=== PATIENT | male | born 1975 | race Caucasian/White ===

== ENCOUNTER 2017-01-04 22:30 | Emergency (ER) | payer OTHER ==
[~2017-01-04] VITALS: Ht 185.4 cm; Wt 114.7 kg
[~2017-01-04 22:30] MED LIST: IBUP-232 PO; WELLTAB39 PO
[2017-01-04 22:56] VITALS: BP 151/88; PULSE 80; RESP 18; TEMP 97.9
[2017-01-04] MEDS ORDERED: SODIUM CHLORIDE 0.9% FLUSH 10 ML FLUSH IVF PRN (23:45)
[2017-01-04] MEDS ORDERED: ONDANSETRON HCL 4 MG/2 ML VIAL IVP ONE (23:45)
[2017-01-04] MEDS ORDERED: SODIUM CHLOR 0.9% 1000 ML INJ 1,000 ML IV ONE (23:45)
[2017-01-04] MEDS ORDERED: HYDROmorphone HCL PF 1 MG/ML VIAL IVS ONE (23:45)
--- NOTE | 2017-01-04 23:55 | PD ---
HPI Chief Complaint: Flank/Kidney Pain Time Seen by Provider: 23:39 Travel History International Travel<30 days: No Contact w/Intl Traveler<30days: No Traveled to known affect area: No History of Present Illness HPI The patient is a 41-year-old male that complains of left flank pain since 3:30 PM today. The pain is sudden onset and radiates to the groin. He has never had a urinary stone before. The pain is in the left flank and radiates all the way to the left groin. There is never any right sided pain. He denies any dysuria, frequency or urgency. He has been nauseated and vomited twice today. The patient states he is on a ketones diarrhea where he eats fats, low carbohydrates and the goal is to have ketones in the urine. PFSH Past Medical History Asthma: Yes Depression: Yes Cancer: No Cardiovascular Problems: No High Cholesterol: Yes Diminished Hearing: No Endocrine: No GERD: Yes (HEARTBURN OCCASIONALLY) Genitourinary: No Hiatal Hernia: No Immune Disorder: No Medical other: Yes (Gout) Musculoskeletal: Yes (LEFT HIP, PAIN AND TIGHTNESS) Neurologic: No Psychiatric: Yes Reproductive: No Respiratory: Yes (ASTHMA) Immunizations Current: Yes Sleep Apnea: Yes Ulcer: No Tetanus Vaccination: < 5 Years Influenza Vaccination: No Past Surgical History Abdominal Surgery: Yes (HERNIA REPAIR AT ) Cardiac Surgery: No Ear Surgery: No Endocrine Surgery: No Eye Surgery: No Genitourinary Surgery: No Gynecologic Surgery: No Oral Surgery: No Thoracic Surgery: No Tonsillectomy: Yes Other Surgery: Yes Social History Alcohol Use: Yes (Rarely) Tobacco Use: No Substance Use: No Allergies-Medications (Allergen,Severity, Reaction): Coded Allergies: No Known Allergies (Unverified , 01/04/17) Reported Meds & Prescriptions Reported Meds & Active Scripts Active Reported Wellbutrin Xl 24 HR (Bupropion HCl) 300 Mg Tab 300 Mg PO DAILY Review of Systems Except as stated in HPI: all other systems reviewed are Neg Physical Exam Narrative GENERAL: The patient is alert, oriented 3 in moderate to severe distress with areas left flank pain. His vital signs show blood pressure 151/88 but are otherwise normal. SKIN: Focused skin assessment warm/dry. HEAD: Atraumatic. Normocephalic. EYES: Pupils equal and round. No scleral icterus. No injection or drainage. ENT: No nasal bleeding or discharge. Mucous membranes pink and moist. NECK: Trachea midline. No JVD. CARDIOVASCULAR: Regular rate and rhythm. No murmur appreciated. RESPIRATORY: No accessory muscle use. Clear to auscultation. Breath sounds equal bilaterally. GASTROINTESTINAL: Abdomen soft, with tenderness to direct palpation in the left flank and half way between the left flank and left UVJ area, nondistended. Hepatic and splenic margins not palpable. No guarding or rebound is present. MUSCULOSKELETAL: No obvious deformities. No clubbing. No cyanosis. No edema. NEUROLOGICAL: Awake and alert. No obvious cranial nerve deficits. Motor grossly within normal limits. Normal speech. PSYCHIATRIC: Appropriate mood and affect; insight and judgment normal. Data Data Last Documented VS Vital Signs Date Time Temp Pulse Resp B/P (MAP) Pulse Ox O2 Delivery O2 Flow Rate FiO2 01/05/17 01:11 18 01/05/17 00:39 75 134/76 (95) 97 Room Air 01/04/17 22:56 97.9 Orders Orders Complete Blood Count With Diff (01/04/17 23:45) Basic Metabolic Panel (Bmp) (01/04/17 23:45) Urinalysis - C+S If Indicated (01/04/17 23:45) Ct Abd/Pel W/O Iv Contrast (01/04/17 23:45) Ecg Monitoring (01/04/17 23:45) Iv Access Insert/Monitor (01/04/17 23:45) Ondansetron Inj (Zofran Inj) (01/04/17 23:45) Sodium Chloride 0.9% Flush (Ns Flush) (01/04/17 23:45) Sodium Chlor 0.9% 1000 Ml Inj (Ns 1000 M (01/04/17 23:45) Hydromorphone Pf Inj (Dilaudid Pf Inj) (01/04/17 23:45) Ketorolac Inj (Toradol Inj) (01/05/17 00:00) Labs Laboratory Tests Test 01/05/17 00:05 White Blood Count 9.1 TH/MM3 Red Blood Count 4.85 MIL/MM3 Hemoglobin 13.8 GM/DL Hematocrit 41.0 % Mean Corpuscular Volume 84.4 FL Mean Corpuscular Hemoglobin 28.4 PG Mean Corpuscular Hemoglobin Concent 33.6 % Red Cell Distribution Width 12.8 % Platelet Count 279 TH/MM3 Mean Platelet Volume 8.2 FL Neutrophils (%) (Auto) 82.7 % Lymphocytes (%) (Auto) 9.5 % Monocytes (%) (Auto) 5.1 % Eosinophils (%) (Auto) 1.0 % Basophils (%) (Auto) 1.7 % Neutrophils # (Auto) 7.4 TH/MM3 Lymphocytes # (Auto) 0.9 TH/MM3 Monocytes # (Auto) 0.5 TH/MM3 Eosinophils # (Auto) 0.1 TH/MM3 Basophils # (Auto) 0.2 TH/MM3 CBC Comment DIFF FINAL Differential Comment Urine Color YELLOW Urine Turbidity CLEAR Urine pH 5.5 Urine Specific [place] 1.017 Urine Protein NEG mg/dL Urine Glucose (UA) NEG mg/dL Urine Ketones 40 mg/dL Urine Occult Blood LARGE Urine Nitrite NEG Urine Bilirubin NEG Urine Leukocyte Esterase NEG Urine RBC 15-19 /hpf Urine WBC 0-2 /hpf Urine Squamous Epithelial Cells 0-5 /hpf Urine Calcium Oxalate Crystals FEW /hpf Urine Bacteria RARE /hpf Microscopic Urinalysis Comment CULT NOT INDICATED Blood Urea Nitrogen 15 MG/DL Creatinine 1.10 MG/DL Random Glucose 124 MG/DL Calcium Level 8.9 MG/DL Sodium Level 136 MEQ/L Potassium Level 4.2 MEQ/L Chloride Level 103 MEQ/L Carbon Dioxide Level 21.6 MEQ/L Anion Gap 11 MEQ/L Estimat Glomerular Filtration Rate 73 ML/MIN [facility] Medical Decision Making Medical Screen Exam Complete: Yes Emergency Medical Condition: Yes Medical Record Reviewed: Yes Interpretation(s) The patient has a 3 mm stone in the distal left ureter just proximal to the UVJ that is causing mild left hydronephrosis and hydroureter. There is also noted a single nonobstructing stone within each kidney measuring approximately 2 mm. Differential Diagnosis Urinary tract infection, ureteral stone, urethral stricture, abdominal aortic aneurysm-highly unlikely Narrative Course The patient has a left ureteral stone. He will likely pass this without assistance from urology but he should make an appointment with urology in case this stone does not pass. He is given Flomax, Phenergan, Percocet and Motrin prescriptions to help him pass the stone. He should increase his liquid intake. Diagnosis Primary Impression: Left ureteral calculus Additional Instructions: Do not drink alcohol or drive on the Phenergan or Percocet. Take the Flomax every day to open up your urinary passages. The Motrin is also taken regularly , 1 tablet 3 times daily and this is very useful in lowering the amount of pain. Drink plenty of liquids. Oftentimes the reason for formation of stones is that people get dehydrated. Set up an appointment with urologist if the stone does not pass. Med/Other Pt SpecificInfo: Prescription(s) given Scripts Oxycodone-Acetaminophen (Percocet) 5-325 mg Tab 1 TAB PO Q4H Y for PAIN, #28 TAB 0 Refills Prov: Timo Angel MD 01/05/17 Promethazine (Phenergan) 25 Mg Tablet 25 MG PO Q6H Y for NAUSEA OR VOMITING, #30 TAB 0 Refills Prov: Timo Angel MD 01/05/17 Tamsulosin (Flomax) 0.4 Mg Cap 0.4 MG PO HS for Manage Prostate Problems, #30 CAP 0 Refills Prov: Timo Angel MD 01/05/17 Ibuprofen (Ibuprofen) 800 Mg Tab 800 MG PO TID, #44 TAB 0 Refills Prov: Timo Agnel MD 01/05/17 Disposition: 01 DISCHARGE HOME Condition: Stable Timo Angel MD Jan 04, 2017 23:55
[2017-01-05] MEDS ORDERED: KETOROLAC TROMETHAMINE 60 MG/2 ML (IM) VIAL IVP ONE
[2017-01-05 00:22] LABS: AUTOMATED NEUTROPHIL # 7.4 TH/MM3 (1.8-7.7); BASOPHIL # 0.2 TH/MM3 (0-0.2); BASOPHIL % 1.7 % (0.0-2.0); EOSINOPHIL # 0.1 TH/MM3 (0-0.4); LYMPH % 9.5 % (9.0-44.0); LYMPHOCYTE # 0.9 TH/MM3 (1.0-4.8); MEAN CELL VOLUME 84.4 FL (80.0-100.0); MEAN CORPUSCULAR HEMOGLOBIN 28.4 PG (27.0-34.0); MEAN CORPUSCULAR HGB CONC 33.6 % (32.0-36.0); MONO % 5.1 % (0.0-8.0); NEUT % 82.7 % (16.0-70.0); PLATELET COUNT 279 TH/MM3 (150-450); RED BLOOD COUNT 4.85 MIL/MM3 (4.50-5.90); RED CELL DISTRIBUTION WIDTH 12.8 % (11.6-17.2); WHITE BLOOD COUNT 9.1 TH/MM3 (4.0-11.0)
[2017-01-05 00:23] LABS: BLOOD, URINE LARGE (NEG); GLUCOSE,URINE NEG (NEG); HEMO FLAGS DIFF FINAL; KETONE, URINE 40 mg/dL (NEG); NITRITE,URINE NEG (NEG); PH, URINE 5.5 (5.0-8.5)
[2017-01-05 00:29] LABS: POTASSIUM 4.2 MEQ/L (3.5-5.1)
[2017-01-05 00:33] LABS: BICARBONATE 21.6 MEQ/L (21.0-32.0)
[2017-01-05 00:35] LABS: URINE COLOR YELLOW (YELLW/STRAW)
[2017-01-05 00:36] LABS: BACTERIA, URINE RARE /hpf; CALCIUM OXALATE CRYSTALS,URINE FEW /hpf; COMMENT (UR) CULT NOT INDICATED; CULTURE IF INDICATED CULT NOT INDICATED; RBC, URINE 15-19 /hpf (0-3); SQUAMOUS EPITHELIAL CELL URINE 0-5 /hpf (0-5); WBC, URINE 0-2 /hpf (0-5)
[2017-01-05 00:39] VITALS: BP 134/76; PULSE 75; RESP 18; O2SAT 97
--- NOTE | 2017-01-05 00:39 | RADRPT ---
EXAM DATE/TIME: 01/05/2017 00:17 [facility] COMPARISON: CT ABDOMEN & PELVIS W/O CONTRAST, May 05, 2016, 10:43. INDICATIONS : Nausea, vomiting and left flank pain for 7 hours ORAL CONTRAST: No oral contrast ingested. RADIATION DOSE: 27.38 CTDIvol (mGy) MEDICAL HISTORY : Gastroesophageal reflux disease. SURGICAL HISTORY : Inguinal hernia repair. ENCOUNTER: Initial ACUITY: 1 day PAIN SCALE: 5/10 LOCATION: Left flank TECHNIQUE: Volumetric scanning of the abdomen and pelvis was performed. Using automated exposure control and ad justment of the mA and/or kV according to patient size, radiation dose was kept as low as reasonably achievable to obtain optimal diagnostic quality images. DICOM format image data is available electro nically for review and comparison. FINDINGS: LOWER LUNGS: There is mild dependent atelectasis. LIVER: Homogeneous density without lesion. There is no dilation of the biliary tree. No calcified gallston es. SPLEEN: Normal size without lesion. PANCREAS: Within normal limits. KIDNEYS: Normal in size and shape. There is no mass. Mild left hydronephrosis and hydroureter is caused by a 3 mm stone in the distal left ureter just proximal to the ureterovesical junction. There is an additi onal 2 mm nonobstructing stone within each collecting system. ADRENAL GLANDS: Within normal limits. VASCULAR: There is no aortic aneurysm. BOWEL/MESENTERY: The stomach, small bowel, and colon demonstrate no acute abnormality. There is no free intraperitone al air or fluid. ABDOMINAL WALL: Within normal limits. RETROPERITONEUM: There is no lymphadenopathy. BLADDER: No wall thickening or mass. REPRODUCTIVE: Within normal limits. INGUINAL: There is no lymphadenopathy or hernia. MUSCULOSKELETAL: No acute abnormality. CONCLUSION: 1. There is a 3 mm stone in the distal left ureter just proximal to the ureterovesical junction that is causing mild left hydronephrosis and hydroureter. 2. There is a single nonobstructing stone within each kidney measuring approximately 2 mm. Pedro Patel MD on January 05, 2017 at 0:33 Board Certified Radiologist. This report was verified electronically.
[2017-01-05 01:50] VITALS: BP 137/87; PULSE 72; RESP 18; O2SAT 97
[2017-01-05] MEDS ORDERED: PROM25TA10 PO (01:54)
[2017-01-05] MEDS ORDERED: PERC5TAB12 PO (01:54)
[2017-01-05] MEDS ORDERED: IBUP800T23 PO (01:54)
[2017-01-05] MEDS ORDERED: TAMS5CAP PO (01:54)
[2017-01-05] MEDS ORDERED: TAMSULOSIN HCL 0.4 MG CAP PO ONE (02:00)
[2017-01-05 02:25] VITALS: BP 135/87
== END 2017-01-05 02:30 | disposition home or self-care (01) ==
LOC: PHED 22:30
DX: N20.1 Calculus of ureter (principal)
CPT/HCPCS: 74176; 80048; 81001; 85025; 96361; 96374; 96375; 99285; J1170; J1885; J2405; J7030

== ENCOUNTER 2017-06-30 10:07 | Emergency (ER) | payer OTHER ==
[~2017-06-30] VITALS: Ht 185.4 cm; Wt 113.0 kg
[~2017-06-30 10:07] MED LIST changes: -IBUP-232 PO; +IBUP1TAB7 PO; +PERC5TAB12 PO; +PROM25TA10 PO; +TAMS5CAP PO
[2017-06-30 10:11] VITALS: BP 148/93; PULSE 92; RESP 16; TEMP 97.6; O2SAT 96
[2017-06-30] MEDS ORDERED: KETOROLAC TROMETHAMINE 60 MG/2 ML (IM) VIAL IM ONE (12:30)
[2017-06-30] MEDS ORDERED: DIAZEPAM 5 MG TAB PO ONE (12:30)
[2017-06-30] MEDS ORDERED: ROBA750T PO (12:51)
[2017-06-30] MEDS ORDERED: IBUP1TAB7 PO (12:51)
[2017-06-30] MEDS ORDERED: TRAM50 PO (12:51)
--- NOTE | 2017-06-30 12:52 | PD ---
HPI Chief Complaint: Musculoskeletal Complaint Time Seen by Provider: 11:46 Travel History International Travel<30 days: No Contact w/Intl Traveler<30days: No Traveled to known affect area: No History of Present Illness HPI This is a 42-year-old male with right-sided neck pain and muscle spasm. He reports the pain as "sharp and spasming" which radiates down into his arm occasionally. He reports he's had similar episodes in the past. He denies recent injury or trauma. No fever or chills. No chest pain or shortness of breath. Pain is aggravated by palpation of the neck and range of motion. Slightly relieved with rest. PFSH Past Medical History Asthma: Yes Depression: Yes Cancer: No Cardiovascular Problems: No High Cholesterol: Yes Diminished Hearing: No Endocrine: No GERD: Yes (HEARTBURN OCCASIONALLY) Genitourinary: No Hiatal Hernia: No Immune Disorder: No Musculoskeletal: Yes (LEFT HIP, PAIN AND TIGHTNESS) Neurologic: No Psychiatric: Yes Reproductive: No Respiratory: Yes (ASTHMA) Immunizations Current: Yes Sleep Apnea: Yes Ulcer: No Past Surgical History Abdominal Surgery: Yes (HERNIA REPAIR AT ) Cardiac Surgery: No Ear Surgery: No Endocrine Surgery: No Eye Surgery: No Genitourinary Surgery: No Gynecologic Surgery: No Oral Surgery: No Thoracic Surgery: No Tonsillectomy: Yes Other Surgery: Yes Social History Alcohol Use: Yes (Rarely) Tobacco Use: No Substance Use: No Allergies-Medications (Allergen,Severity, Reaction): Coded Allergies: No Known Allergies (Unverified Adverse Reaction, Unknown, 06/30/17) Reported Meds & Prescriptions Reported Meds & Active Scripts Active No Active Prescriptions or Reported Medications Review of Systems Except as stated in HPI: all other systems reviewed are Neg General / Constitutional: No: Fever Eyes: No: Visual changes HENT: No: Headaches Physical Exam Narrative GENERAL: Alert well-appearing 42-year-old male SKIN: Warm and dry. HEAD: Normocephalic. EYES: No injection or drainage. NECK: Supple. No lymphadenopathy. No cervical midline tenderness. +ttp right trapezius muscle. CARDIOVASCULAR: Regular rate and rhythm. RESPIRATORY: Breath sounds equal bilaterally. No accessory muscle use. GASTROINTESTINAL: Abdomen soft, non-tender, nondistended. MUSCULOSKELETAL: No cyanosis, or edema. +ttp into the biceps. Normal strength and sensation of the upper extremity. Equal hand grasp. BACK: Nontender without obvious deformity. No CVA tenderness. Data Data Last Documented VS Vital Signs Date Time Temp Pulse Resp B/P (MAP) Pulse Ox O2 Delivery O2 Flow Rate FiO2 06/30/17 10:11 97.6 92 16 148/93 (111) 96 Orders Orders Ketorolac Inj (Toradol Inj) (06/30/17 12:30) Diazepam (Valium) (06/30/17 12:30) MDM Medical Decision Making Medical Screen Exam Complete: Yes Emergency Medical Condition: Yes Differential Diagnosis Trapezius muscle spasm, cervical radiculopathy, upper back strain Narrative Course 42-year-old male here with right trapezius muscle spasm. He is well-appearing. He has a normal neurologic exam. He was given a shot of Toradol and Valium and reports symptom improvement. He'll be treated for upper back strain Diagnosis Primary Impression: Trapezius muscle spasm Referrals: Primary Care Physician Additional Instructions: Medication as directed. Ice and/or heat for comfort. Avoid heavy lifting or strenuous activity. Scripts Tramadol (Ultram) 50 Mg Tab 50 MG PO Q6H Y for PAIN, #10 TAB 0 Refills Prov: Marisabel Daly 06/30/17 Methocarbamol (Robaxin) 750 Mg Tab 750 MG PO QID for Muscle Spasm, #12 TAB 0 Refills Prov: Marisabel Daly 06/30/17 Ibuprofen (Ibuprofen) 800 Mg Tab 800 MG PO Q6HR Y for PAIN, #40 TAB 0 Refills Prov: Marisabel Daly 06/30/17 Disposition: 01 DISCHARGE HOME Condition: Stable Marisabel Daly Jun 30, 2017 12:52
== END 2017-06-30 12:59 | disposition home or self-care (01) ==
LOC: PHED 10:07 → PHEFT 12:59
DX: M62.830 Muscle spasm of back (principal); E78.00 Pure hypercholesterolemia, unspecified; J45.909 Unspecified asthma, uncomplicated; F32.9 Major depressive disorder, single episode, unspecified
CPT/HCPCS: 96372; 99283; J1885